=== PATIENT | female | born 1990 | race Caucasian/White ===

== ENCOUNTER 2019-03-15 16:01 | Inpatient (IN) | payer OTHER ==
[~2019-03-15] VITALS: Ht 152.4 cm; Wt 76.2 kg
[2019-03-15] MEDS ORDERED: RINGERS SOLUTION,LACTATED 1,000 ML IV PRN (17:05)
[2019-03-15] MEDS: RINGERS SOLUTION,LACTATED 1,000 ML IV SCH ×2 (17:05→22:59)
[2019-03-15 17:11] VITALS: BP 125/63
[2019-03-15] MEDS ORDERED: METOCLOPRAMIDE HCL 5 MG/ML 2 ML VIAL IVP PRN (17:15)
[2019-03-15] MEDS ORDERED: CITRIC ACID/SODIUM CITRATE 30 ML SOLUTION UDCUP PO PRN (17:15)
[2019-03-15] MEDS ORDERED: OXYTOCIN 30 UNITS/LACT RINGERS 500 ML IV PRN ×3 (18:00→18:09)
[2019-03-15 18:03] LABS: BASOPHILS % (AUTO) 0.3 % (0.0-2.0); EOSINOPHILS % (AUTO) 0.7 % (1.0-6.0); HEMATOCRIT 36.5 % (36-46); HEMOGLOBIN 12.2 g/dL (12.0-16.0); LYMPHOCYTES # (AUTO) 1.8 K/uL (1.0-4.8); LYMPHOCYTES % (AUTO) 20.5 % (22.0-44.0); MEAN CORPUSCULAR HGB CONC 33.5 G/dL (31.0-37.0); MEAN CORPUSCULAR VOLUME 87 fL (80-100); MONOCYTES # (AUTO) 0.7 K/uL (0.1-1.0); MONOCYTES % (AUTO) 7.6 % (2.0-9.0); NEUTROPHILS # (AUTO) 6.4 K/uL (1.8-7.7); NEUTROPHILS % (AUTO) 70.9 % (40.0-70.0); PLATELET COUNT (AUTO)-OB 129 K/uL (150-450); RED BLOOD CELL COUNT(AUTO) 4.21 MIL/uL (4.00-5.20); RED CELL DISTRIBUTION WIDTH 14.1 % (11.5-14.5)
[2019-03-15] MEDS ORDERED: OXYGEN THERAPY IH SCH (20:00)
[2019-03-16] MEDS ORDERED: ROPIVACAINE HCL/PF 0.2% 100 ML ED ONE (02:38)
[2019-03-16] MEDS ORDERED: BUPIVACAINE HCL/PF 0.25% 10 ML VIAL ONE ×2 (02:39→02:40)
[2019-03-16] MEDS ORDERED: DiphenhydrAMINE HCL 50 MG/ML VIAL IVP PRN (03:30)
[2019-03-16] MEDS ORDERED: NALBUPHINE HCL 10 MG/ML VIAL IVP PRN ×2 (03:30)
[2019-03-16] MEDS ORDERED: ONDANSETRON HCL 4 MG/2 ML VIAL IVP PRN (03:30)
[2019-03-16] MEDS ORDERED: ROPIVACAINE HCL/PF 0.2% 100 ML ED PRN (03:30)
[2019-03-16] MEDS: RINGERS SOLUTION,LACTATED 1,000 ML IV SCH (04:48)
[2019-03-16] MEDS ORDERED: OXYTOCIN 30 UNITS/LACT RINGERS 500 ML IV ONE (06:07)
[2019-03-16] MEDS ORDERED: GLYCERIN/WITCH HAZEL LEAF 40 PADS JAR TP PRN (06:15)
[2019-03-16] MEDS ORDERED: LANOLIN 7 GM OINTMENT TP PRN (06:15)
[2019-03-16] MEDS ORDERED: LIDOCAINE/PF 1% 30 ML VIAL INJ PRN (06:15)
[2019-03-16] MEDS ORDERED: MAGNESIUM HYDROXIDE SUSPENSION 30 ML UDCUP PO PRN (06:15)
[2019-03-16] MEDS ORDERED: BENZOCAINE 20%/MENTHOL 56 GM SPRAY CANISTER TP PRN (06:15)
[2019-03-16] MEDS ORDERED: OxyCODONE HCL/ACETAMINOPHEN 5-325 MG TABLET PO PRN ×2 (06:15)
[2019-03-16] MEDS: IBUPROFEN 800 MG TABLET PO PRN ×2 (13:35→19:48)
[2019-03-17] MEDS: IBUPROFEN 800 MG TABLET PO PRN (05:40)
[2019-03-17 06:08] LABS: BASOPHILS % (AUTO) 0.2 % (0.0-2.0); EOSINOPHILS % (AUTO) 0.6 % (1.0-6.0); HEMATOCRIT 32.9 % (36-46); LYMPHOCYTES # (AUTO) 2.7 K/uL (1.0-4.8); LYMPHOCYTES % (AUTO) 22.2 % (22.0-44.0); MEAN CORPUSCULAR HEMOGLOBIN 29.1 pg (26.0-34.0); MEAN CORPUSCULAR HGB CONC 33.4 G/dL (31.0-37.0); MEAN CORPUSCULAR VOLUME 87 fL (80-100); MONOCYTES # (AUTO) 0.8 K/uL (0.1-1.0); MONOCYTES % (AUTO) 6.8 % (2.0-9.0); NEUTROPHILS # (AUTO) 8.6 K/uL (1.8-7.7); NEUTROPHILS % (AUTO) 70.2 % (40.0-70.0); PLATELET COUNT (AUTO)-OB 110 K/uL (150-450); RED BLOOD CELL COUNT(AUTO) 3.77 MIL/uL (4.00-5.20); RED CELL DISTRIBUTION WIDTH 14.1 % (11.5-14.5)
[2019-03-17] MEDS ORDERED: IBUP-2071 PO (09:46)
[2019-03-17] MEDS ORDERED: DSS100 PO (09:46)
[2019-03-17] MEDS ORDERED: FERR-89 PO (09:46)
== END 2019-03-17 11:00 | disposition home or self-care (01) | DRG 560 ==
LOC: 4S 16:10 → OBSVTOIN 16:10
PROVIDERS: ADMIT Obstetrics & Gynecology; ATTEND Obstetrics & Gynecology
PROC: 0HQ9XZZ Repair Perineum Skin, External Approach (ICD-10-PCS; principal; 2019-03-16)
PROC: 10E0XZZ Delivery of Products of Conception, External Approach (ICD-10-PCS; 2019-03-16)
PROC: 3E0R3BZ Introduction of Anesthetic Agent into Spinal Canal, Percutaneous Approach (ICD-10-PCS; 2019-03-16)
PROC: 00HU33Z Insertion of Infusion Device into Spinal Canal, Percutaneous Approach (ICD-10-PCS; 2019-03-16)
DX: O76 Abnormality in fetal heart rate and rhythm complicating labor and delivery (principal); O70.0 First degree perineal laceration during delivery; Z3A.39 39 weeks gestation of pregnancy; Z37.0 Single live birth
CPT/HCPCS: 86850; 86900; 86901; J2590; J2795; J3490; J7120

== ENCOUNTER 2019-07-01 07:05 | Day surgery (SDC) | payer OTHER ==
[~2019-07-01] VITALS: Ht 160 cm; Wt 65.5 kg
[~2019-07-01 07:05] MED LIST: DSS100 PO; FERR-89 PO; IBUP-2071 PO; RINGERS SOLUTION,LACTATED 1,000 ML IV ONE
[2019-07-01] MEDS ORDERED: ONDANSETRON HCL 4 MG/2 ML VIAL IVP ONE (07:06)
[2019-07-01] MEDS ORDERED: SUCCINYLCHOLINE CHLORIDE 20 MG/ML 10 ML VIAL IVP ONE (07:06)
[2019-07-01] MEDS ORDERED: PROPOFOL 1% 20 ML VIAL IVP ONE (07:06)
[2019-07-01] MEDS ORDERED: FentaNYL CITRATE-PF 100 MCG/2 ML VIAL IVP ONE (07:06)
[2019-07-01] MEDS ORDERED: MIDAZOLAM HCL 2 MG/2 ML VIAL IVP ONE (07:06)
[2019-07-01] MEDS ORDERED: BUPIVACAINE HCL/PF 0.25% 30 ML VIAL ONE (08:20)
[2019-07-01] MEDS ORDERED: MINERAL OIL 10 ML VIAL TP ONE (08:25)
[2019-07-01] MEDS ORDERED: MEPERIDINE-PF 25 MG/ML VIAL IVP PRN (09:00)
[2019-07-01] MEDS ORDERED: MEPERIDINE-PF 25 MG/ML VIAL ONE (10:22)
[2019-07-01] MEDS: HYDROmorphone 2 MG/ML SYRINGE IVP PRN ×3 (10:28→10:57)
[2019-07-01] MEDS: FentaNYL CITRATE-PF 100 MCG/2 ML VIAL IVP PRN ×2 (10:47→10:52)
[2019-07-01] MEDS ORDERED: FentaNYL CITRATE-PF 100 MCG/2 ML VIAL ONE (11:17)
[2019-07-01] MEDS ORDERED: HYDROmorphone 2 MG/ML SYRINGE ONE (11:17)
== END 2019-07-01 12:25 | disposition home or self-care (01) ==
LOC: SURGERY 07:05
PROVIDERS: ATTEND Obstetrics & Gynecology
DX: Z30.2 Encounter for sterilization (principal)
CPT/HCPCS: 58671; 84703; J0330; J0690; J1170; J2175; J2250; J2405; J2704; J3010; J3490; J7120